=== PATIENT | male | born 1990 | race Caucasian/White ===

== ENCOUNTER 2017-08-11 20:42 | Emergency (ER) | payer MEDICAID ==
[~2017-08-11] VITALS: Ht 167.6 cm; Wt 104.5 kg
[~2017-08-11 20:42] MED LIST: NOCURR
[2017-08-11 20:45] VITALS: BP 157/97
[2017-08-11] MEDS ORDERED: IBUPROFEN 800 MG TABLET PO ONE (21:15)
== END 2017-08-11 21:36 | disposition home or self-care (01) ==
LOC: EMS 20:44
DX: S41.101A Unspecified open wound of right upper arm, initial encounter (principal); L70.0 Acne vulgaris; X58.XXXA Exposure to other specified factors, initial encounter; Y93.89 Activity, other specified; Y92.89 Other specified places as the place of occurrence of the external cause; Y99.8 Other external cause status
CPT/HCPCS: 99283